=== PATIENT | male | born 1960 | race Caucasian/White ===

== ENCOUNTER 2022-11-28 16:41 | Inpatient (IN) | payer OTHER, BC ==
[~2022-11-28] VITALS: Ht 167.6 cm; Wt 89.4 kg
[2022-11-28 16:45] VITALS: BP_SYST 144
[2022-11-28 17:29] LABS: BASOPHILS % (AUTO) 0.5 % (0.0-2.0); EOSINOPHILS # (AUTO) 0.3 K/uL (0.0-0.4); EOSINOPHILS % (AUTO) 2.8 % (0.0-4.0); HEMATOCRIT 45.3 % (36-54); HEMOGLOBIN 15.8 g/dL (14.0-18.0); LYMPHOCYTES # (AUTO) 2.6 K/uL (1.0-5.5); LYMPHOCYTES % (AUTO) 28.7 % (20.5-51.5); MEAN CORPUSCULAR HEMOGLOBIN 31 pg (27-31); MEAN CORPUSCULAR HGB CONC 35 % (32-36); MEAN CORPUSCULAR VOLUME 88 fL (79.0-98.0); MONOCYTES % (AUTO) 10.7 % (1.7-9.3); NEUTROPHILS # (AUTO) 5.2 K/uL (1.8-7.7); NEUTROPHILS % (AUTO) 57.3 % (40.0-70.0); PLATELET COUNT (AUTO) 177 K/uL (130-430); RED BLOOD CELL COUNT(AUTO) 5.14 MIL/uL (4.2-6.2); WHITE BLOOD COUNT (AUTO) 9.1 K/uL (4.8-10.8)
[2022-11-28 17:44] LABS: ALANINE AMINOTRANSFERASE 29 U/L (12-78); ALBUMIN 3.6 g/dL (3.4-4.8); ANION GAP 11 (5-15); ASPARTATE AMINOTRANSFERASE 19 U/L (10-37); CALCIUM 8.4 mg/dL (8.4-11.0); CHLORIDE 103 mmol/L (98-107); CREATININE 1.16 mg/dL (0.55-1.30); GFR AFRICAN AMERICAN 82 mL/min (>90); GLUCOSE 118 mg/dL (70-99); TOTAL BILIRUBIN 0.7 mg/dL (0.0-1.0); UREA NITROGEN, BLOOD 11 mg/dL (8-21)
[2022-11-28] MEDS ORDERED: ASA81 PO (20:28)
[2022-11-28] MEDS ORDERED: CARV12.548 PO (20:29)
[2022-11-28] MEDS ORDERED: LIP40 PO (20:29)
[2022-11-28] MEDS ORDERED: AMLO2.5T2 PO (20:30)
[2022-11-28] MEDS: CARVEDILOL 12.5 MG TABLET (COREG) PO SCH (21:45)
[2022-11-28] MEDS ORDERED: ACETAMINOPHEN 650 MG SUPP.RECT RC PRN (22:30)
[2022-11-28] MEDS ORDERED: ENOXAPARIN SODIUM 40 MG/0.4 ML SYRINGE SUBCUT ONE (22:30)
[2022-11-28] MEDS ORDERED: TEMAZEPAM 15 MG CAPSULE PO PRN (22:30)
[2022-11-28] MEDS: ASPIRIN 81 MG TAB.CHEW PO SCH (23:42)
[2022-11-29 00:17] LABS: BILIRUBIN,URINE NEGATIVE (NEGATIVE); BLOOD, URINE NEGATIVE (NEGATIVE); CLARITY/URINE CLEAR (CLEAR); COLOR,URINE YELLOW (YELLOW); GLUCOSE,URINE TRACE (NEGATIVE); KETONES,URINE NEGATIVE (NEGATIVE); LEUKOCYTE ESTERASE ,URINE NEGATIVE (NEGATIVE); NITRITE, URINE NEGATIVE (NEGATIVE); PROTEIN URINE NEGATIVE (NEGATIVE); UROBILINOGEN,URINE 0.2 (0.2-1.0)
[2022-11-29 00:20] VITALS: BP_SYST 153
[2022-11-29 00:22] VITALS: BP_SYST 153
[2022-11-29 06:30] LABS: BASOPHILS % (AUTO) 0.4 % (0.0-2.0); EOSINOPHILS # (AUTO) 0.1 K/uL (0.0-0.4); EOSINOPHILS % (AUTO) 0.9 % (0.0-4.0); HEMATOCRIT 43.8 % (36-54); LYMPHOCYTES # (AUTO) 1.9 K/uL (1.0-5.5); LYMPHOCYTES % (AUTO) 15.8 % (20.5-51.5); MEAN CORPUSCULAR HEMOGLOBIN 30 pg (27-31); MEAN CORPUSCULAR HGB CONC 34 % (32-36); MEAN CORPUSCULAR VOLUME 87 fL (79.0-98.0); MONOCYTES # (AUTO) 0.9 K/uL (0.0-1.0); MONOCYTES % (AUTO) 7.4 % (1.7-9.3); NEUTROPHILS # (AUTO) 9.3 K/uL (1.8-7.7); NEUTROPHILS % (AUTO) 75.5 % (40.0-70.0); PLATELET COUNT (AUTO) 144 K/uL (130-430); RED BLOOD CELL COUNT(AUTO) 5.02 MIL/uL (4.2-6.2); RED CELL DISTRIBUTION WIDTH 13.9 % (9.0-15.0); WHITE BLOOD COUNT (AUTO) 12.3 K/uL (4.8-10.8)
[2022-11-29 06:52] LABS: CALCIUM 7.8 mg/dL (8.4-11.0); CREATININE 0.92 mg/dL (0.55-1.30)
[2022-11-29 07:04] LABS: ALBUMIN 3.3 g/dL (3.4-4.8); FREE T4 (FREE THYROXINE) 0.9 ng/dL (0.6-1.6); THYROID STIMULATING HORMONE 0.86 uIu/mL (0.34-4.82)
[2022-11-29 07:06] LABS: PROTHROMBIN TIME 9.9 SECS (9.5-12.5)
[2022-11-29 08:18] VITALS: BP_SYST 122
[2022-11-29] MEDS: ATORVASTATIN 20 MG TABLET PO SCH (08:36)
[2022-11-29] MEDS: ASPIRIN 81 MG TAB.CHEW PO SCH (08:36)
[2022-11-29] MEDS: CARVEDILOL 12.5 MG TABLET (COREG) PO SCH ×2 (08:37→20:35)
[2022-11-29] MEDS ORDERED: amLODIPine BESYLATE 5 MG TABLET PO SCH (09:00)
[2022-11-29] MEDS ORDERED: iohexoL 350 mgI/mL, 100 ML INFUS..BTL IV ONE (10:34)
[2022-11-29] MEDS ORDERED: LORazepam 2 MG/ML VIAL IVP PRN (12:30)
[2022-11-29] MEDS ORDERED: levETIRAcetam 500 MG TABLET PO ONE (13:30)
[2022-11-29 13:49] VITALS: BP_SYST 139
[2022-11-29] MEDS: LIDOCAINE VISCOUS 2%, 15 ML UDC MM PRN ×3 (14:09→22:11)
[2022-11-29] MEDS: ACETAMINOPHEN 325 MG TABLET PO PRN ×2 (14:09→20:36)
[2022-11-29 20:00] VITALS: BP_SYST 160
[2022-11-29] MEDS ORDERED: AMPICILLIN SODIUM/SULBACTAM NA 3 GM in NS 100 ML IV ONE (20:00)
[2022-11-29] MEDS: levETIRAcetam 500 MG TABLET PO SCH (20:35)
[2022-11-29] MEDS: ENOXAPARIN SODIUM 40 MG/0.4 ML SYRINGE SUBCUT SCH (20:35)
[2022-11-29 22:15] VITALS: BP_SYST 136
[2022-11-30] MEDS: AMPICILLIN SODIUM/SULBACTAM NA 3 GM in NS 100 ML IV SCH ×5 (00:51→23:22)
[2022-11-30] MEDS: HYDROcodone/ACETAMIN 5-325 MG TAB (NORCO/ VICODIN) PO PRN ×5 (00:55→23:56)
[2022-11-30 01:00] VITALS: BP_SYST 162
[2022-11-30] MEDS: LIDOCAINE VISCOUS 2%, 15 ML UDC MM PRN ×3 (05:45→17:52)
[2022-11-30 07:08] LABS: BASOPHILS % (AUTO) 0.4 % (0.0-2.0); EOSINOPHILS # (AUTO) 0.1 K/uL (0.0-0.4); HEMATOCRIT 44.5 % (36-54); HEMOGLOBIN 15.4 g/dL (14.0-18.0); LYMPHOCYTES # (AUTO) 1.9 K/uL (1.0-5.5); LYMPHOCYTES % (AUTO) 16.9 % (20.5-51.5); MEAN CORPUSCULAR HEMOGLOBIN 30 pg (27-31); MEAN CORPUSCULAR HGB CONC 35 % (32-36); MEAN CORPUSCULAR VOLUME 88 fL (79.0-98.0); NEUTROPHILS % (AUTO) 72.7 % (40.0-70.0); PLATELET COUNT (AUTO) 134 K/uL (130-430); RED BLOOD CELL COUNT(AUTO) 5.07 MIL/uL (4.2-6.2); RED CELL DISTRIBUTION WIDTH 13.8 % (9.0-15.0); WHITE BLOOD COUNT (AUTO) 11.1 K/uL (4.8-10.8)
[2022-11-30 07:39] VITALS: BP_SYST 148
[2022-11-30 07:43] LABS: CALCIUM 8.7 mg/dL (8.4-11.0); CREATININE 0.99 mg/dL (0.55-1.30)
[2022-11-30] MEDS: ASPIRIN 81 MG TAB.CHEW PO SCH (08:23)
[2022-11-30] MEDS: ATORVASTATIN 20 MG TABLET PO SCH (08:23)
[2022-11-30] MEDS: levETIRAcetam 500 MG TABLET PO SCH ×2 (08:23→21:33)
[2022-11-30] MEDS: CARVEDILOL 12.5 MG TABLET (COREG) PO SCH ×2 (08:24→21:33)
[2022-11-30 13:07] VITALS: BP_SYST 118
[2022-11-30 17:12] VITALS: BP_SYST 128
[2022-11-30 20:00] VITALS: BP_SYST 159
[2022-11-30] MEDS: ENOXAPARIN SODIUM 40 MG/0.4 ML SYRINGE SUBCUT SCH (21:33)
[2022-12-01 00:28] VITALS: BP_SYST 130
[2022-12-01] MEDS: HYDROcodone/ACETAMIN 5-325 MG TAB (NORCO/ VICODIN) PO PRN (05:21)
[2022-12-01] MEDS: AMPICILLIN SODIUM/SULBACTAM NA 3 GM in NS 100 ML IV SCH ×4 (05:24→23:16)
[2022-12-01 05:32] LABS: BASOPHILS % (AUTO) 0.4 % (0.0-2.0); EOSINOPHILS # (AUTO) 0.2 K/uL (0.0-0.4); HEMATOCRIT 43.6 % (36-54); HEMOGLOBIN 14.9 g/dL (14.0-18.0); LYMPHOCYTES # (AUTO) 2.8 K/uL (1.0-5.5); LYMPHOCYTES % (AUTO) 33.2 % (20.5-51.5); MEAN CORPUSCULAR HEMOGLOBIN 30 pg (27-31); MEAN CORPUSCULAR HGB CONC 34 % (32-36); MEAN CORPUSCULAR VOLUME 88 fL (79.0-98.0); MONOCYTES # (AUTO) 0.8 K/uL (0.0-1.0); MONOCYTES % (AUTO) 8.8 % (1.7-9.3); NEUTROPHILS # (AUTO) 4.7 K/uL (1.8-7.7); NEUTROPHILS % (AUTO) 55.6 % (40.0-70.0); PLATELET COUNT (AUTO) 134 K/uL (130-430); RED BLOOD CELL COUNT(AUTO) 4.96 MIL/uL (4.2-6.2); RED CELL DISTRIBUTION WIDTH 13.9 % (9.0-15.0); WHITE BLOOD COUNT (AUTO) 8.5 K/uL (4.8-10.8)
[2022-12-01 05:55] LABS: CALCIUM 8.7 mg/dL (8.4-11.0); CREATININE 1.05 mg/dL (0.55-1.30)
[2022-12-01 07:42] VITALS: BP_SYST 141
[2022-12-01] MEDS: ASPIRIN 81 MG TAB.CHEW PO SCH (08:19)
[2022-12-01] MEDS: CARVEDILOL 12.5 MG TABLET (COREG) PO SCH ×2 (08:19→20:34)
[2022-12-01] MEDS: levETIRAcetam 500 MG TABLET PO SCH ×2 (08:20→20:34)
[2022-12-01] MEDS: ATORVASTATIN 20 MG TABLET PO SCH (08:20)
[2022-12-01 12:00] VITALS: BP_SYST 116
[2022-12-01 16:38] VITALS: BP_SYST 140
[2022-12-01 16:39] VITALS: BP_SYST 125
[2022-12-01] MEDS ORDERED: AUG875 PO (18:36)
[2022-12-01] MEDS ORDERED: LACT1TAB14 PO (18:36)
[2022-12-01] MEDS ORDERED: LEVE500T9 PO (18:36)
[2022-12-01 20:00] VITALS: BP_SYST 148
[2022-12-01] MEDS: ENOXAPARIN SODIUM 40 MG/0.4 ML SYRINGE SUBCUT SCH (20:35)
[2022-12-02] VITALS: BP_SYST 108
[2022-12-02] MEDS: AMPICILLIN SODIUM/SULBACTAM NA 3 GM in NS 100 ML IV SCH ×2 (05:05→10:59)
[2022-12-02 08:47] VITALS: BP_SYST 109
[2022-12-02] MEDS: ASPIRIN 81 MG TAB.CHEW PO SCH (10:58)
[2022-12-02] MEDS: ATORVASTATIN 20 MG TABLET PO SCH (10:59)
[2022-12-02] MEDS: CARVEDILOL 12.5 MG TABLET (COREG) PO SCH (10:59)
[2022-12-02] MEDS: levETIRAcetam 500 MG TABLET PO SCH (10:59)
[2022-12-02 12:04] VITALS: BP_SYST 120
[2022-12-02 14:07] VITALS: BP_SYST 120
== END 2022-12-02 14:33 | disposition home or self-care (01) | DRG 101 ==
LOC: SED 16:41 → STU 19:18 → SMU 12-01 19:18
PROVIDERS: ADMIT Internal Medicine; ATTEND Internal Medicine
PROC: 4A10X4Z Monitoring of Central Nervous Electrical Activity, External Approach (ICD-10-PCS; principal; 2022-11-29)
DX: G40.409 Other generalized epilepsy and epileptic syndromes, not intractable, without status epilepticus (principal); I10 Essential (primary) hypertension; E78.5 Hyperlipidemia, unspecified; E78.1 Pure hyperglyceridemia; Z96.653 Presence of artificial knee joint, bilateral; I25.10 Atherosclerotic heart disease of native coronary artery without angina pectoris; S00.532A Contusion of oral cavity, initial encounter; X58.XXXA Exposure to other specified factors, initial encounter; Y93.89 Activity, other specified; Y92.89 Other specified places as the place of occurrence of the external cause; Y99.8 Other external cause status; Z79.82 Long term (current) use of aspirin; Z79.899 Other long term (current) drug therapy; Z87.891 Personal history of nicotine dependence; Z95.1 Presence of aortocoronary bypass graft; Z88.8 Allergy status to other drugs, medicaments and biological substances
CPT/HCPCS: 36415; 70450-TC; 70551; 71045; 71275; 76376; 80048; 80053; 80061; 81003; 83037; 83735; 83880; 84439; 84443; 84484; 85025; 85610-TC; 85730-TC; 93005; 93306; 93880; 95816; 99285; G0378; J0295; J1650; J2001; Q9967